=== PATIENT | male | born 1970 | race Caucasian/White ===

== ENCOUNTER 2021-01-21 12:54 | Emergency (ER) | payer OTHER ==
[~2021-01-21] VITALS: Ht 149.9 cm; Wt 39.5 kg
[2021-01-21 13:04] VITALS: BP 140/85
--- NOTE | 2021-01-21 13:17 | NUR ---
PT AMBULATED TO BED 3.
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
--- NOTE | 2021-01-21 13:58 | NUR ---
DR. ALARCON AT PT BEDSIDE FOR FURTHER EVALUATION.
[2021-01-21] MEDS ORDERED: ACET-8386 PO (14:20)
[2021-01-21] MEDS: fentaNYL citrate 0.05 MG/ML VIAL IM ONE (14:34)
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
[2021-01-21 15:26] VITALS: BP 137/79
--- NOTE | 2021-01-21 15:27 | NUR ---
Patient discharged with v/s stable. Written and verbal after care instructions given BLADDER CA, ABD PAIN, AND CHRONIC PAIN and explained. Patient alert, oriented and verbalized understanding of instructions. Ambulatory with steady gait. All questions addressed prior to discharge. ID band removed. Patient advised to follow up with PMD. Rx of NORCO 5MG-325MG PO Q6-8HR PRN PAIN given. Patient educated on indication of medication including possible reaction and side effects. Opportunity to ask questions provided and answered.
== END 2021-01-21 15:27 | disposition home or self-care (01) ==
LOC: MED 12:54
DX: C67.9 Malignant neoplasm of bladder, unspecified (principal); G89.29 Other chronic pain; R10.9 Unspecified abdominal pain; Z88.0 Allergy status to penicillin
CPT/HCPCS: 96372; 99283; J3010

== ENCOUNTER 2021-06-26 21:49 | Emergency (ER) | payer OTHER ==
[~2021-06-26] VITALS: Ht 149.9 cm; Wt 41.3 kg
[2021-06-26 21:49] VITALS: BP 150/102
[~2021-06-26 21:49] MED LIST: ACET-8386 PO
--- NOTE | 2021-06-26 21:52 | NUR ---
PT BIBA TO ER BED 07
--- NOTE | 2021-06-26 22:00 | NUR ---
RECEIVED PT IN BED 7 VIA [facility], HERE WITH CC WOUND CHECK. PT HAS UROSTOMY RIGHT ABDOMEN X 3 MONTHS. 2 MONTHS AGO HAD APPENDECTOMY. INCISION SITE HAS BECOME IRRITATED DUE TO LEAKAGE FROM UROSTOMY SITE. PEA SIZED SITE NOTED WITH REDNESS. PT BEING TREATED FOR CA, RECEIVING CHEMOTHERAPY. IS AWAKE, ALERT, AND VERY PLEASANT. C/O PAIN TO ABDOMINAL WOUNDS. MED HX; BLADDER CA
[2021-06-26] MEDS ORDERED: MORPHINE SULFATE 4 MG/ML SYR IM ONE (23:10)
[2021-06-26] MEDS ORDERED: BACITRACIN OINT 500 UNITS/GM PKT TP ONE ×2 (23:53→23:55)
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
[2021-06-27] MEDS ORDERED: IBUP-2213 PO (00:47)
[2021-06-27] MEDS ORDERED: ACET-8386 PO (00:47)
[2021-06-27 01:50] VITALS: BP 150/102
--- NOTE | 2021-06-27 01:50 | NUR ---
Patient discharged with v/s stable. Written and verbal after care instructions given and explained. Patient alert, oriented and verbalized understanding of instructions. Ambulatory with steady gait. All questions addressed prior to discharge. ID band removed. Patient advised to follow up with PMD. Rx of HYDROCODONE, MOTRIN given. Patient educated on indication of medication including possible reaction and side effects. Opportunity to ask questions provided and answered.
== END 2021-06-27 01:50 | disposition home or self-care (01) ==
LOC: MED 21:49
DX: R10.30 Lower abdominal pain, unspecified (principal); Z43.3 Encounter for attention to colostomy; F17.210 Nicotine dependence, cigarettes, uncomplicated; Z98.890 Other specified postprocedural states; Z79.891 Long term (current) use of opiate analgesic; Z88.0 Allergy status to penicillin
CPT/HCPCS: 96372; 99283; J2270